=== PATIENT | female | born 1960 | race Two or more races ===

== ENCOUNTER → 2023-09-22 13:06 | Outpatient (REF) | payer OTHER, SELFPAY | LOC: DHCBS MAIN 13:06 | PROVIDERS: ATTENDING PHYSICIAN Internal Medicine Cardiovascular Disease; FAMILY PHYSICIAN Family Medicine | DX: R00.2 Palpitations (principal) | CPT/HCPCS: 93306 ==

== ENCOUNTER → 2024-03-19 15:04 | Outpatient (REF) | payer OTHER, SELFPAY | LOC: WDC 15:04 | PROVIDERS: ATTENDING PHYSICIAN Family Medicine | DX: Z12.31 Encounter for screening mammogram for malignant neoplasm of breast (principal) | CPT/HCPCS: 77063; 77067 ==

== ENCOUNTER → 2024-07-17 14:17 | Outpatient (REF) | payer OTHER, SELFPAY | LOC: RAD 14:17 | PROVIDERS: ATTENDING PHYSICIAN Family Medicine | DX: N23 Unspecified renal colic (principal); M54.32 Sciatica, left side; M54.50 Low back pain, unspecified; M25.551 Pain in right hip; M25.552 Pain in left hip | CPT/HCPCS: 72110; 76770 ==

== ENCOUNTER → 2024-12-03 13:08 | Outpatient (REF) | payer OTHER, SELFPAY | LOC: RAD 13:08 | PROVIDERS: ATTENDING PHYSICIAN Family Medicine | DX: M25.562 Pain in left knee (principal); M25.532 Pain in left wrist | CPT/HCPCS: 73110; 73564 ==

== ENCOUNTER → 2025-07-01 09:27 | Outpatient (REF) | payer OTHER, SELFPAY | LOC: RAD 09:27 | PROVIDERS: ATTENDING PHYSICIAN Internal Medicine; FAMILY PHYSICIAN Family Medicine | DX: K76.0 Fatty (change of) liver, not elsewhere classified (principal) | CPT/HCPCS: 76700 ==